=== PATIENT | female | born 1950 | race Caucasian/White ===

== ENCOUNTER 2022-12-30 22:34 | Emergency (ER) | payer OTHER, SELFPAY ==
[2022-12-30 22:38] VITALS: BP 123/58; PULSE 75; RESP 18; TEMP 36.1; O2SAT 99
--- NOTE | 2022-12-30 23:48 | ED.GENADULT ---
HPI - General Adult General Chief complaint: Fall Stated complaint: fall Time Seen by Provider: 12/30/22 23:04 History of Present Illness HPI narrative: 72-year-old female on hospice for MS in previous CVA presenting ED after fall. Patient states she fell out of bed when trying to transfer. She struck her head. Patient denies loss of consciousness. Patient denies any other complaints this time. Patient has her son at bedside. Osei Pollard. I discussion about goals of care was had. Due to her poor clinical condition/comfort care they do not want any studies ordered. They would like the laceration repaired and then have her discharged back to hospice. Exam Narrative: APPEARANCE: Patient appears older than her stated age Head: 1 cm stellate laceration over the left forehead, EYES: EOMI, NOSE: Atraumatic NECK: Trachea midline RESPIRATORY: No increased rate of breathing, CT AP CARDIOVASCULAR: RRR, ABDOMINAL: Non-distended MUSCULOSKELETAl: No obvious deformities NEURO: Alert. Moving 4/4 extremities SKIN:: Warm, dry. Normal color PSYCHIATRIC: Normal affect Course Vital Signs Vital signs: Vital Signs Temperature 97.0 F L 12/30/22 22:38 Pulse Rate 75 12/30/22 22:38 Respiratory Rate 18 12/30/22 22:38 Blood Pressure 123/58 L 12/30/22 22:38 Pulse Oximetry 99 12/30/22 22:38 Oxygen Delivery Room Air 12/30/22 22:38 Temperature 97.0 F L 12/30/22 22:38 Pulse Rate 75 12/30/22 22:38 Respiratory Rate 18 12/30/22 22:38 Blood Pressure 123/58 L 12/30/22 22:38 Pulse Oximetry 99 12/30/22 22:38 Oxygen Delivery Room Air 12/30/22 22:38 Medical Decision Making MDM Narrative Medical decision making narrative: -Presentation: 72-year-old in hospice/comfort care presenting after a fall. After discussing goals of care with family they do not want any imaging or laboratory studies. The wound will be repaired she will be discharged back to the hospice. -DDX includes but is not limited to: MS, facial laceration -Co-morbidities complicating care: MS, CVA -Social determinants of health: patient is in hospice -External Chart Review: none -Hx from independent Sources: son Osei Pollard -Discussion of Management/Consultants: none -Independent interpretation of studies: none Dx tests considered but not ordered: none -Procedures: 1 cm laceration repaired with Dermabond -Interventions: none -Shared decision making / Disposition: discharged back to hospice. -RX Vital Signs Vital Signs: Vital Signs Temperature 97.0 F L 12/30/22 22:38 Pulse Rate 75 12/30/22 22:38 Respiratory Rate 18 12/30/22 22:38 Blood Pressure 123/58 L 12/30/22 22:38 Pulse Oximetry 99 12/30/22 22:38 Oxygen Delivery Room Air 12/30/22 22:38 Temperature 97.0 F L 12/30/22 22:38 Pulse Rate 75 12/30/22 22:38 Respiratory Rate 18 12/30/22 22:38 Blood Pressure 123/58 L 12/30/22 22:38 Pulse Oximetry 99 12/30/22 22:38 Oxygen Delivery Room Air 12/30/22 22:38 Discharge Plan Discharge Clinical Impression: Fall, Laceration Patient Disposition: Hospice - Home Condition: Terminal Instructions: Facial Laceration (ED) Additional Instructions: You were seen in the emergency department for a laceration. This was repaired with Dermabond. The glue will wear off on its own. If patient develops signs of infection you can return emergency department for re-evaluation. Otherwise please continue care per hospice.
[2022-12-31 00:30] VITALS: BP 106/65; PULSE 89; RESP 18
--- NOTE | 2022-12-31 00:56 | PC.NURSE ---
wound to left forehead cleansed and doctor placed dermabond, patient tolerated well
== END 2022-12-31 01:01 | disposition hospice, home (50) ==
PROVIDERS: Emergency Provider Emergency Medicine; PCP Emergency Medicine
DX: S01.81XA Laceration without foreign body of other part of head, initial encounter (principal); W06.XXXA Fall from bed, initial encounter
CPT/HCPCS: 12001; 99282

== ENCOUNTER 2023-07-28 19:00 | Emergency (ER) | payer BC, SELFPAY ==
--- NOTE | ~2023-07-28 | XR_ITS ---
XR hip BI 2V w AP pelvis 07/28/2023 20:21 Indication: Hip pain after fall. Procedure: AP pelvis and 2 views each hip Comparison: No prior studies for comparison. Findings: Mild osteoarthritis of the hips. Pelvic rings are intact. No acute fracture or traumatic ma lalignment. No foreign bodies. There is fecal impaction of the rectum. There are spinal fusion change s at L4-5. Impression: 1: No acute fracture. Reviewed, dictated and finalized at location A. Impression: 1: No acute fracture.
[2023-07-28 19:00] VITALS: BP 96/63; PULSE 112; RESP 16; O2SAT 92
[2023-07-28] MEDS: MORPHINE SULFATE (*CRX) 4 MG/ML INJ IV PUSH (20:28)
--- NOTE | 2023-07-28 20:48 | ED.GENADULT ---
HPI - General Adult General Chief complaint: Fall Stated complaint: R HIP & ARM PAIN, & LAC S/P GLF Time Seen by Provider: 07/28/23 19:46 History of Present Illness HPI narrative: Is a 72-year-old female who presents the emergency department with chief complaint of fall. Patient is a resident of a local residential and is currently undergoing hospice for MS patient the patient's family with limited intervention to maintain comfort. The patient reports that she had pain in bilateral hips and reports the pain is worse with movement. Patient reports no deformity Related Data Allergies Allergy/AdvReac Type Severity Reaction Status Date / Time No Known Allergies Allergy Verified 07/28/23 19:07 Review of Systems Review of Systems: A 10 system review of systems was completed on the patient and is negative except for what is stated in the HPI. Nursing and ancillary documentation was reviewed. Exam Narrative: GENERAL: Well-appearing, well-nourished, and in no acute distress. HEAD: Normocephalic, small wound to the right forehead. EYES: PERRLA and EOMI. ENT: Nares clear, no rhinorrhea or epistaxis. Mucous membranes moist. NECK: Supple. CHEST: Clear to auscultation. No respiratory distress. HEART: Regular rate and rhythm. No murmur heard. Normal peripheral pulses. ABDOMEN: Soft, nontender, nondistended, normal active bowel sounds. EXTREMITIES: Normal range of motion. No edema. SKIN: Warm, dry, no rash. NEURO: No focal deficits. Alert and oriented x3. PSYCH: Normal mood and affect. Course Course Emergency Course: GENERAL: Well-appearing, well-nourished, and in no acute distress. HEAD: Normocephalic, atraumatic. EYES: PERRLA and EOMI. ENT: Nares clear, no rhinorrhea or epistaxis. Mucous membranes moist. NECK: Supple. CHEST: Clear to auscultation. No respiratory distress. HEART: Regular rate and rhythm. No murmur heard. Normal peripheral pulses. ABDOMEN: Soft, nontender, nondistended, normal active bowel sounds. EXTREMITIES: Normal range of motion tenderness to palpation of bilateral hips.. No edema. SKIN: Warm, dry, no rash. NEURO: No focal deficits. Alert and oriented x3. PSYCH: Normal mood and affect. Vital Signs Vital signs: Vital Signs Pulse Rate 112 H 07/28/23 19:00 Respiratory Rate 16 07/28/23 19:00 Blood Pressure 96/63 L 07/28/23 19:00 Pulse Oximetry 92 07/28/23 19:00 Oxygen Delivery Room Air 07/28/23 19:00 Pulse Rate 112 H 07/28/23 19:00 Respiratory Rate 16 07/28/23 19:00 Blood Pressure 96/63 L 07/28/23 19:00 Pulse Oximetry 92 07/28/23 19:00 Oxygen Delivery Room Air 07/28/23 19:00 Procedures Laceration Laceration 1: Date: 07/28/23 Time: 21:34 Site: face Side (If applicable): right Size (cm): 2 Description: stellate Depth: simple, single layer Local Anesthetic: none Pre-repair: wound explored and irrigated ====== Skin Level ====== Skin layer closed with: dermabond ====== Subcutaneous Layer ====== ====== Muscle Layer ====== ====== Tendon Layer ====== Medical Decision Making MDM Narrative Medical decision making narrative: Differential diagnosis includes head injury, pelvic fracture hip fracture Due to the patient being comfort care and hospice it was discussed whether to perform CT head and CT C-spine at this time the patient's family wanted to avoid doing the CT scan as they would not do any kind of surgical intervention if there was any intracranial hemorrhage. Plain film x-rays were obtained of the pelvis and hip which showed no evidence of fracture Vital Signs Vital Signs: Vital Signs Pulse Rate 112 H 07/28/23 19:00 Respiratory Rate 16 07/28/23 19:00 Blood Pressure 96/63 L 07/28/23 19:00 Pulse Oximetry 92 07/28/23 19:00 Oxygen Delivery Room Air 07/28/23 19:00 Pulse Rate 112 H 07/28/23 19:00 Respiratory Rate 16 07/28/23 1
[2023-07-28 22:09] VITALS: BP 96/81; PULSE 87; RESP 14; O2SAT 94
== END 2023-07-28 23:22 ==
PROVIDERS: Emergency Provider Emergency Medicine; PCP Emergency Medicine
DX: S01.81XA Laceration without foreign body of other part of head, initial encounter (principal); S70.02XA Contusion of left hip, initial encounter; S70.01XA Contusion of right hip, initial encounter; G35 Multiple sclerosis; W18.30XA Fall on same level, unspecified, initial encounter
CPT/HCPCS: 12011; 73521; 96374; 99284; J2270